=== PATIENT | male | born 1970 | race Caucasian/White ===

== ENCOUNTER 2017-03-16 02:03 | Emergency (ER) | payer SELFPAY ==
[~2017-03-16] VITALS: Ht 175.3 cm; Wt 84.0 kg
[~2017-03-16 02:03] MED LIST: DEXI30CA PO; LORA0.5T PO
[2017-03-16 02:09] VITALS: BP 123/77; PULSE 76; RESP 14; TEMP 98.6; O2SAT 100
[2017-03-16 02:15] VITALS: O2SAT 99
--- NOTE | 2017-03-16 02:38 | RADRPT ---
EXAM DATE/TIME: 03/16/2017 02:16 [facility] COMPARISON: No previous studies available for comparison. INDICATIONS : Short of breath. Chest pain. MEDICAL HISTORY : None. SURGICAL HISTORY : None. ENCOUNTER: Initial ACUITY: 1 day PAIN SCORE: 8/10 LOCATION: Bilateral chest FINDINGS: Portable AP view of the chest demonstrates a normal-sized cardiac silhouette. No effusion, consolidat ion, or pneumothorax is visualized. The bones and soft tissues demonstrate no acute abnormality. CONCLUSION: No acute cardiopulmonary abnormality is identified. Giorgio Navarro MD on March 16, 2017 at 2:36 Board Certified Radiologist. This report was verified electronically.
[2017-03-16 02:42] LABS: BASOPHIL # 0.1 TH/MM3 (0-0.2); BASOPHIL % 0.9 % (0.0-2.0); EOSINOPHIL # 0.4 TH/MM3 (0-0.4); EOSINOPHIL % 4.7 % (0.0-4.0); HEMOGLOBIN 14.6 GM/DL (13.0-17.0); LYMPH % 39.8 % (9.0-44.0); LYMPHOCYTE # 3.5 TH/MM3 (1.0-4.8); MEAN CELL VOLUME 88.3 FL (80.0-100.0); MEAN CORPUSCULAR HEMOGLOBIN 31.4 PG (27.0-34.0); MEAN CORPUSCULAR HGB CONC 35.5 % (32.0-36.0); MONOCYTE # 0.7 TH/MM3 (0-0.9); NEUT % 46.6 % (16.0-70.0); PLATELET COUNT 188 TH/MM3 (150-450); RED BLOOD COUNT 4.64 MIL/MM3 (4.50-5.90); WHITE BLOOD COUNT 8.7 TH/MM3 (4.0-11.0)
[2017-03-16 02:45] LABS: ALBUMIN 3.6 GM/DL (3.4-5.0); ALT (GPT) 18 U/L (12-78); AST (GOT) 13 U/L (15-37); BICARBONATE 25.9 MEQ/L (21.0-32.0); BLOOD UREA NITROGEN 12 MG/DL (7-18); CALCIUM 8.2 MG/DL (8.5-10.1); CHLORIDE 108 MEQ/L (98-107); CREATININE 0.89 MG/DL (0.60-1.30); GLOMERULAR FILTRATION RATE 92 ML/MIN (>89); GLUCOSE,RANDOM 101 MG/DL (74-106); SODIUM (NA) 141 MEQ/L (136-145)
[2017-03-16 02:46] LABS: TOTAL BILIRUBIN ADULT 0.2 MG/DL (0.2-1.0)
[2017-03-16 02:55] LABS: ALKALINE PHOSPHATASE 75 U/L (45-117); TROPONIN I LESS THAN 0.02 NG/ML (0.02-0.05)
--- NOTE | 2017-03-16 03:43 | PD ---
HPI Chief Complaint: Cardiac Complaint Time Seen by Provider: 02:30 Travel History International Travel<30 days: No Contact w/Intl Traveler<30days: No Traveled to known affect area: No History of Present Illness HPI The patient is a 46 year old male who presents to the [facility] emergency department with a history of palpitations that awoke him from sound sleep at approximately 1 AM. He reports that he had shortness of breath associated with this. He reports that it lasted between 20 and 25 minutes. He denies having any nightmares or dreams that he was aware of prior to waking up. He denies having any chest pressure or chest pain. He reports that he has had similar symptoms in the past and was diagnosed with anxiety. He does report having increased problems with stress and worry. He denies having any suicidal ideations. 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 He denies having any chest pressure or chest pain with activity. On review of systems otherwise, the patient denies having any recent fevers, cough , congestion, neck pain, abdominal pain, vomiting, diarrhea, urinary symptoms, or neurologic symptoms. He denies having any recent weight loss or weight gain. He denies having any lower extremity edema, calf pain, or erythema. [facility] Past Medical History Narrative Medical The patient's past medical history is significant for acid reflux. Anxiety: Yes GERD: Yes Tetanus Vaccination: < 5 Years Influenza Vaccination: No Past Surgical History Surgical History: No Previous Surgery Social History Alcohol Use: No Tobacco Use: Yes (1/2PPD) Substance Use: No Allergies-Medications (Allergen,Severity, Reaction): Coded Allergies: Penicillins (Verified Allergy, Severe, Nausea/Vomiting, 03/16/17) aspirin (Verified Allergy, Severe, Nausea/Vomiting, 03/16/17) Narrative Medication Omeprazole Review of Systems Except as stated in HPI: all other systems reviewed are Neg General / Constitutional: No: Fever Eyes: No: Visual changes HENT: No: Headaches Cardiovascular: Positive: Palpitations, Tachycardia, No: Chest Pain or Discomfort, Dyspnea on exertion Respiratory: Positive: Shortness of Breath Gastrointestinal: No: Nausea, Vomiting, Diarrhea, Abdominal Pain, Loss of Appetite Genitourinary: No: Dysuria Musculoskeletal: No: Pain Skin: No Rash Neurologic: No: Weakness, Focal Abnormalities, Change in Mentation, Slurred Speech, Sensory Disturbance Psychiatric: No: Depression Endocrine: No: Polydipsia Hematologic/Lymphatic: No: Easy Bruising Physical Exam Narrative General: The patient is well-developed well-nourished male in no acute distress. Head and Neck exam: Head is normocephalic atraumatic. Eyes: EOMI, pupils are equal round and reactive to light. Nose: Midline septum with pink mucous membranes Mouth: Dentition unremarkable. Moist mucus membranes. Posterior oropharynx is not erythematous. No tonsillar hypertrophy. Uvula midline. Airway patent. Neck: No palpable lymphadenopathy. No nuchal rigidity. No thyromegaly. Cardiovascular: Regular rate and rhythm without murmurs, gallops, or rubs. No pulse deficits in the extremities on simultaneous auscultation and palpation of his radial artery. Lungs: Clear to auscultation bilaterally. No wheezes, rhonchi, or rales. Abdomen: Soft, without tenderness to palpation in all 4 quadrants of the abdomen. No guarding, rebound, or rigidity. Normal bowel sounds are audible. No tenderness on palpation of McBurney's point. Extremities: No clubbing, cyanosis, or edema. 2+ pulses in all 4 extremities. No calf tenderness on palpation. Back: No spinous process tenderness to palpation. No costovertebral angle tenderness to palpation. Neurologic Exam: Grossly nonfocal. Skin Exam: No rash noted. Intact skin that is warm and dry. Data Data Last Documented VS Vital Signs Date Time Temp Pulse Resp B/P (MAP) Pulse Ox O2 Delivery O2 Flow Rate FiO2 03/16/17 02:15 99 03/16/17 02:15 Nasal Cannula 03/16/17 02:09 98.6 76 14 123/77 (92) Orders Orders Electrocardiogram (03/16/17 02:11) Complete Blood Count With Diff (03/16/17 02:11) Ckmb (Isoenzyme) Profile (03/16/17 02:11) Troponin I (03/16/17 02:11) Chest, Single Ap (03/16/17 02:11) Iv Access Insert/Monitor (03/16/17 02:11) Ecg Monitoring (03/16/17 02:11) Oxygen Administration (03/16/17 02:11) Oximetry (03/16/17 02:11) Comprehensive Metabolic Panel (03/16/17 02:11) Thyroid Stimulating Hormone (03/16/17 02:15) Labs Laboratory Tests Test 03/16/17 02:15 White Blood Count 8.7 TH/MM3 Red Blood Count 4.64 MIL/MM3 Hemoglobin 14.6 GM/DL Hematocrit 41.0 % Mean Corpuscular Volume 88.3 FL Mean Corpuscular Hemoglobin 31.4 PG Mean Corpuscular Hemoglobin Concent 35.5 % Red Cell Distribution Width 13.0 % Platelet Count 188 TH/MM3 Mean Platelet Volume 9.0 FL Neutrophils (%) (Auto) 46.6 % Lymphocytes (%) (Auto) 39.8 % Monocytes (%) (Auto) 8.0 % Eosinophils (%) (Auto) 4.7 % Basophils (%) (Auto) 0.9 % Neutrophils # (Auto) 4.0 TH/MM3 Lymphocytes # (Auto) 3.5 TH/MM3 Monocytes # (Auto) 0.7 TH/MM3 Eosinophils # (Auto) 0.4 TH/MM3 Basophils # (Auto) 0.1 TH/MM3 CBC Comment DIFF FINAL Differential Comment Blood Urea Nitrogen 12 MG/DL Creatinine 0.89 MG/DL Random Glucose 101 MG/DL Total Protein 7.0 GM/DL Albumin 3.6 GM/DL Calcium Level 8.2 MG/DL Alkaline Phosphatase 75 U/L Aspartate Amino Transf (AST/SGOT) 13 U/L Alanine Aminotransferase (ALT/SGPT) 18 U/L Total Bilirubin 0.2 MG/DL Sodium Level 141 MEQ/L Potassium Level 3.8 MEQ/L Chloride Level 108 MEQ/L Carbon Dioxide Level 25.9 MEQ/L Anion Gap 7 MEQ/L Estimat Glomerular Filtration Rate 92 ML/MIN Total Creatine Kinase 98 U/L Troponin I LESS THAN 0.02 NG/ML Thyroid Stimulating Hormone 3rd Gen 3.030 uIU/ML MDM Medical Decision Making Medical Screen Exam Complete: Yes Emergency Medical Condition: Yes Medical Record Reviewed: Yes Interpretation(s) Last Impressions Chest X-Ray 03/16/17210 Signed Impressions: Service Date/Time: Thursday, March 16, 2017 02:16 - CONCLUSION: No acute cardiopulmonary abnormality is identified. Giorgio Navarro MD Differential Diagnosis SDT, versus paroxysmal atrial fibrillation, versus premature atrial contraction , versus sinus tachycardia, versus anxiety, versus endocrine disorder Narrative Course During the course of the patients emergency department visit, the patients history, examination, and differential diagnosis were reviewed with the patient. The patient was placed on a office support specialist with oximetry and frequent blood pressure monitoring. The patient had IV access obtained and blood work sent for analysis. The patient had an EKG done on arrival. The patient's EKG shows a sinus rhythm heart rate of 72, QRS duration is 86 ms, QTC 385 ms. T waves are inverted in V1, no acute ST segment elevation. The patients laboratory studies were reviewed and remarkable for a CBC that is unremarkable, CMP is remarkable for chloride of 108, calcium 8.2, AST 13, cardiac enzymes within normal limits, TSH 3.03 Radiology studies were reviewed and remarkable for a chest x-ray that shows no acute cardiopulmonary disease. The patient has remained asymptomatic during his emergency department observation. The patient denies having a primary care physician. He is given the name of the [facility] for follow-up. I instructed him that the next step in his evaluation if he has a recurrence of palpitations would be to do a 24-hour Holter monitor. The patient is resting comfortably and feels better, is alert and in no distress. The patients results and examination findings were discussed with the patient. The repeat examination is unremarkable and benign. The history, exam, diagnostic testing, and current condition do not suggest any significant pathology to warrant further testing, continued ED treatment, admission, or surgical evaluation at this point. The vital signs have been stable. The patient does not have uncontrollable pain, intractable vomiting, or other significant symptoms. The patient's condition is stable and appropriate for discharge. The patient will pursue further outpatient evaluation with a primary care physician or other designated or consulting physician as indicated in the discharge instructions. The patient expressed understanding and was agreeable with this plan. Diagnosis Primary Impression: Palpitations Referrals: [facility] 1 week Patient Instructions: General Instructions, Heart Palpitations (ED) Med/Other Pt SpecificInfo: No Change to Meds Disposition: 01 DISCHARGE HOME Condition: Stable Esther Underwood MD Mar 16, 2017 03:43
--- NOTE | 2017-03-16 11:02 | EKG ---
Date Performed: 03/16/2017 Time Performed: 02:08:37 PTAGE: 46 years EKG: Sinus rhythm POSSIBLE RIGHT VENTRICULAR CONDUCTION DELAY BORDERLINE ECG NO PREVIOUS TRACING DOCTOR: Ron Javed Interpretating Date/Time 03/16/2017 10:58:05
== END 2017-03-16 04:48 | disposition home or self-care (01) ==
LOC: EDBD → MERGE 02:03 → NEPE 02:03
DX: R00.2 Palpitations (principal); R94.31 Abnormal electrocardiogram [ECG] [EKG]; F17.210 Nicotine dependence, cigarettes, uncomplicated
CPT/HCPCS: 71045; 80053; 82550; 84443; 84484; 85025; 93005; 99285

== ENCOUNTER 2017-04-08 20:39 | Emergency (ER) | payer OTHER ==
[~2017-04-08] VITALS: Ht 177.8 cm; Wt 90.0 kg
[2017-04-08 21:15] VITALS: RESP 16; O2SAT 98
[2017-04-08] MEDS ORDERED: PROCHLORPERAZINE INJ 10 MG/2 ML VIAL IV PUSH ONE (21:15)
[2017-04-08] MEDS ORDERED: KETOROLAC TROMETHAMINE 30 MG/ML (IVP) VIAL IV PUSH ONE (21:15)
[2017-04-08] MEDS ORDERED: SODIUM CHLOR 0.9% 1000 ML INJ 1,000 ML IV ONE (21:15)
[2017-04-08] MEDS ORDERED: SODIUM CHLORIDE 0.9% FLUSH 10 ML FLUSH IVF PRN (21:15)
--- NOTE | 2017-04-08 21:16 | PD ---
HPI Chief Complaint: Headache Time Seen by Provider: 21:08 Travel History International Travel<30 days: No Contact w/Intl Traveler<30days: No Traveled to known affect area: No History of Present Illness HPI 46-year-old male here for evaluation of headaches. The patient reports that for the last 3 weeks he has had about 3-4 headaches per week. Headaches are described as pressure, currently he has 8 out of 10 pain, diffuse pressure, photophobia, nausea, and vomiting. He denies fevers or chills. Onset was gradual. No paresthesias or motor deficits. States that while vomiting today he noticed some chest pressure/burning which has since resolved. Emesis consists of food, then becomes clear. He smokes cigarettes, but denies alcohol or drug use. PFSH Past Medical History Anxiety: Yes Diminished Hearing: No Gastrointestinal Disorders: Yes (GASTRITIS) GERD: Yes Social History Alcohol Use: No Tobacco Use: Yes (1/2PPD) Substance Use: No Allergies-Medications (Allergen,Severity, Reaction): Coded Allergies: Penicillins (Verified Allergy, Severe, Nausea/Vomiting, 04/08/17) metoclopramide (Unverified Allergy, Severe, 04/08/17) "TRIGGERS MY ANXIETY" aspirin (Unverified Allergy, Unknown, 04/08/17) penicillin G (Unverified Allergy, Unknown, 04/08/17) Reported Meds & Prescriptions Reported Meds & Active Scripts Active Reported Lorazepam 0.5 Mg Tab 0.5 Mg PO Q8H PRN Review of Systems Except as stated in HPI: all other systems reviewed are Neg Physical Exam Narrative GENERAL: Well-developed, well-nourished, comfortable, no apparent distress. SKIN: Focused skin assessment warm/dry. HEAD: Atraumatic. Normocephalic. EYES: Pupils equal, round, 3 mm, reactive to light. EOMI. No scleral icterus. No injection or drainage. ENT: No nasal bleeding or discharge. Mucous membranes pink and moist. NECK: Trachea midline. No JVD. CARDIOVASCULAR: Regular rate and rhythm. RESPIRATORY: No accessory muscle use. Clear to auscultation. Breath sounds equal bilaterally. GASTROINTESTINAL: Abdomen soft, non-tender, nondistended. MUSCULOSKELETAL: No obvious deformities. No clubbing. No cyanosis. No edema. NEUROLOGICAL: Awake and alert. No obvious cranial nerve deficits. Motor grossly within normal limits. Normal speech. PSYCHIATRIC: Appropriate mood and affect; insight and judgment normal. Data Data Last Documented VS Vital Signs Date Time Temp Pulse Resp B/P (MAP) Pulse Ox O2 Delivery O2 Flow Rate FiO2 04/08/17:18 98.0 88 16 118/66 (83) 100 04/08/17 21:15 Room Air Orders Orders Electrocardiogram (04/08/17 21:12) Ckmb (Isoenzyme) Profile (04/08/17 21:12) Complete Blood Count With Diff (04/08/17 21:12) Comprehensive Metabolic Panel (04/08/17 21:12) Magnesium (Mg) (04/08/17 21:12) Prothrombin Time / Inr (Pt) (04/08/17 21:12) Act Partial Throm Time (Ptt) (04/08/17 21:12) Troponin I (04/08/17 21:12) Lipase (04/08/17 21:12) Chest, Single Ap (04/08/17 21:12) Ecg Monitoring (04/08/17 21:12) Iv Access Insert/Monitor (04/08/17 21:12) Oximetry (04/08/17 21:12) Sodium Chloride 0.9% Flush (Ns Flush) (04/08/17 21:15) Ct Brain W/O Iv Contrast(Rout) (04/08/17 ) Sodium Chlor 0.9% 1000 Ml Inj (Ns 1000 M (04/08/17 21:15) Prochlorperazine Inj (Compazine Inj) (04/08/17 21:15) Ketorolac Inj (Toradol Inj) (04/08/17 21:15) CKMB (04/08/17 21:35) CKMB% (04/08/17 21:35) Diphenhydramine Inj (Benadryl Inj) (04/08/17 22:30) Levofloxacin (Levaquin) (04/08/17 22:30) Labs Laboratory Tests Test 04/08/17 21:35 White Blood Count 8.4 TH/MM3 Red Blood Count 4.73 MIL/MM3 Hemoglobin 14.7 GM/DL Hematocrit 41.4 % Mean Corpuscular Volume 87.5 FL Mean Corpuscular Hemoglobin 31.0 PG Mean Corpuscular Hemoglobin Concent 35.4 % Red Cell Distribution Width 13.2 % Platelet Count 178 TH/MM3 Mean Platelet Volume 8.4 FL Neutrophils (%) (Auto) 62.5 % Lymphocytes (%) (Auto) 26.5 % Monocytes (%) (Auto) 7.2 % Eosinophils (%) (Auto) 3.0 % Basophils (%) (Auto) 0.8 % Neutrophils # (Auto) 5.3 TH/MM3 Lymphocytes # (Auto) 2.2 TH/MM3 Monocytes # (Auto) 0.6 TH/MM3 Eosinophils # (Auto) 0.3 TH/MM3 Basophils # (Auto) 0.1 TH/MM3 CBC Comment DIFF FINAL Differential Comment Blood Urea Nitrogen 11 MG/DL Creatinine 0.86 MG/DL Random Glucose 109 MG/DL Total Protein 7.0 GM/DL Albumin 3.7 GM/DL Calcium Level 8.5 MG/DL Magnesium Level 2.0 MG/DL Alkaline Phosphatase 79 U/L Aspartate Amino Transf (AST/SGOT) 13 U/L Alanine Aminotransferase (ALT/SGPT) 22 U/L Total Bilirubin 0.4 MG/DL Sodium Level 138 MEQ/L Potassium Level 3.6 MEQ/L Chloride Level 104 MEQ/L Carbon Dioxide Level 26.0 MEQ/L Anion Gap 8 MEQ/L Estimat Glomerular Filtration Rate 96 ML/MIN Total Creatine Kinase 105 U/L Creatine Kinase MB LESS THAN 0.5 NG/ML Troponin I LESS THAN 0.02 NG/ML Lipase 68 U/L MDM Medical Decision Making Medical Screen Exam Complete: Yes Emergency Medical Condition: Yes Medical Record Reviewed: Yes Interpretation(s) EKG: Sinus, rate 70, normal axis, normal intervals, no acute ischemic abnormality. Differential Diagnosis Migraine headache, tension headache, cluster headache, intracranial abnormality , SAH/meningitis/encephalitis less likely, ACS less likely Narrative Course Initial vital signs show heart rate 88, blood pressure 118/66, pulse ox 100% on room air, oral temp of 98F. CBC is unremarkable. CMP is unremarkable. Lipase is 68. Cardiac enzymes are negative. CT head: No acute intracranial abnormality. Mucosal thickening involving the ethmoid air cells bilaterally, bilateral frontal sinuses, left maxillary sinus, and right sphenoid sinus. Chest x-ray: No acute disease The patient was given Compazine and Toradol. After receiving Compazine he felt anxious/sugary. He was written for Benadryl. Patient was also given a dose of Levaquin as he is allergic to penicillins for his sinusitis. On reassessment he is resting comfortably in his headache feels improved. He is overall well- appearing. No nuchal rigidity on exam. I do not believe the patient has SAH/ meningitis/encephalitis. At this point I believe he is stable for discharge home with outpatient follow-up with a primary care physician this week. He was advised on when to return to the emergency department. He verbalizes understanding and agreement with plan. Diagnosis Primary Impression: Headache Qualified Codes: R51 - Headache Additional Impression: Sinusitis Qualified Codes: J32.9 - Chronic sinusitis, unspecified Referrals: Primary Care Physician 3 days Additional Instructions: Follow-up with a primary care physician this week. Return to the emergency department for worsening symptoms or any other concerns. Scripts Levofloxacin (Levaquin) 750 Mg Tablet 750 MG PO DAILY for Infection for 5 Days, #5 TAB 0 Refills Prov: Scooter Barr MD 04/08/17 Disposition: 01 DISCHARGE HOME Condition: Stable Scooter Barr MD Apr 08, 2017 21:16
[2017-04-08 21:18] VITALS: BP 118/66; PULSE 88; RESP 16; TEMP 98; O2SAT 100
[2017-04-08 21:48] LABS: AUTOMATED NEUTROPHIL # 5.3 TH/MM3 (1.8-7.7); BASOPHIL # 0.1 TH/MM3 (0-0.2); BASOPHIL % 0.8 % (0.0-2.0); EOSINOPHIL # 0.3 TH/MM3 (0-0.4); HEMATOCRIT 41.4 % (39.0-51.0); HEMOGLOBIN 14.7 GM/DL (13.0-17.0); LYMPH % 26.5 % (9.0-44.0); LYMPHOCYTE # 2.2 TH/MM3 (1.0-4.8); MEAN CELL VOLUME 87.5 FL (80.0-100.0); MEAN CORPUSCULAR HGB CONC 35.4 % (32.0-36.0); MEAN PLATELET VOLUME 8.4 FL (7.0-11.0); MONO % 7.2 % (0.0-8.0); MONOCYTE # 0.6 TH/MM3 (0-0.9); NEUT % 62.5 % (16.0-70.0); PLATELET COUNT 178 TH/MM3 (150-450); RED BLOOD COUNT 4.73 MIL/MM3 (4.50-5.90); RED CELL DISTRIBUTION WIDTH 13.2 % (11.6-17.2); WHITE BLOOD COUNT 8.4 TH/MM3 (4.0-11.0)
--- NOTE | 2017-04-08 21:54 | RADRPT ---
EXAM DATE/TIME: 04/08/2017 21:25 [facility] COMPARISON: No previous studies available for comparison. INDICATIONS : Cephalgia. RADIATION DOSE: 47.11 CTDIvol (mGy) MEDICAL HISTORY : None SURGICAL HISTORY : None. ENCOUNTER: Initial ACUITY: 1 day PAIN SCALE: 5/10 LOCATION: cranial TECHNIQUE: Multiple contiguous axial images were obtained of the head. Using automated exposure control and adj ustment of the mA and/or kV according to patient size, radiation dose was kept as low as reasonably a chievable to obtain optimal diagnostic quality images. DICOM format image data is available electro nically for review and comparison. FINDINGS: CEREBRUM: The ventricles are normal for age. No evidence of midline shift, mass lesion, hemorrhage or acute in farction. No extra-axial fluid collections are seen. POSTERIOR FOSSA: The cerebellum and brainstem are intact. The 4th ventricle is midline. The cerebellopontine angle i s unremarkable. EXTRACRANIAL: The visualized portion of the orbits is intact. Mucosal thickening is noted involving the ethmoid air cells bilaterally, frontal sinuses, left maxillary sinus and right sphenoid sinus. SKULL: The calvaria is intact. No evidence of skull fracture. CONCLUSION: No acute intracranial abnormality. Mucosal thickening involving the ethmoid air cells bilaterally, bi lateral frontal sinuses, left maxillary sinus and right sphenoid sinus. Jason Muñoz MD on April 08, 2017 at 21:52 Board Certified Radiologist. This report was verified electronically.
--- NOTE | 2017-04-08 21:58 | RADRPT ---
EXAM DATE/TIME: 04/08/2017 21:19 [facility] COMPARISON: CHEST SINGLE AP, March 16, 2017, 2:16. INDICATIONS : Chest pain. MEDICAL HISTORY : None. SURGICAL HISTORY : None. ENCOUNTER: Initial ACUITY: 1 day PAIN SCORE: 9/10 LOCATION: Bilateral chest FINDINGS: A single view of the chest demonstrates the lungs to be symmetrically aerated without evidence of mas s, infiltrate or effusion. The cardiomediastinal contours are unremarkable. Osseous structures are intact. CONCLUSION: No acute disease. Jason Muñoz MD on April 08, 2017 at 21:57 Board Certified Radiologist. This report was verified electronically.
[2017-04-08 22:05] LABS: ALBUMIN 3.7 GM/DL (3.4-5.0); ALT (GPT) 22 U/L (12-78); AST (GOT) 13 U/L (15-37); BLOOD UREA NITROGEN 11 MG/DL (7-18); CALCIUM 8.5 MG/DL (8.5-10.1); CHLORIDE 104 MEQ/L (98-107); CREATININE 0.86 MG/DL (0.60-1.30); GLOMERULAR FILTRATION RATE 96 ML/MIN (>89); GLUCOSE,RANDOM 109 MG/DL (74-106); SODIUM (NA) 138 MEQ/L (136-145)
[2017-04-08 22:10] LABS: ALKALINE PHOSPHATASE 79 U/L (45-117); TOTAL BILIRUBIN ADULT 0.4 MG/DL (0.2-1.0); TROPONIN I LESS THAN 0.02 NG/ML (0.02-0.05)
[2017-04-08] MEDS ORDERED: LEVOFLOXACIN 750 MG TAB PO ONE (22:30)
[2017-04-08] MEDS ORDERED: diphenhydrAMINE HCL 50 MG/ML VIAL IV PUSH ONE (22:30)
[2017-04-08] MEDS ORDERED: LEVA750T9 PO (22:54)
--- NOTE | 2017-04-09 09:01 | EKG ---
Date Performed: 04/08/2017 Time Performed: 21:42:13 PTAGE: 46 years EKG: Sinus rhythm NORMAL ECG PREVIOUS TRACING : 12/31/2015 19.00 DOCTOR: Ron Javed Interpretating Date/Time 04/09/2017 09:00:15
== END 2017-04-08 23:49 | disposition home or self-care (01) ==
LOC: NEPE 20:39
DX: R51 Headache (principal); J32.9 Chronic sinusitis, unspecified; F17.210 Nicotine dependence, cigarettes, uncomplicated; Z88.8 Allergy status to other drugs, medicaments and biological substances; Z88.0 Allergy status to penicillin
CPT/HCPCS: 70450; 71045; 80053; 82550; 82552; 83690; 83735; 84484; 85025; 93005; 96361; 96374; 96375; 99285; J0780; J1200; J1885; J7030; 85610; 85730

== ENCOUNTER 2017-04-20 11:28 | Emergency (ER) | payer SELFPAY ==
[~2017-04-20] VITALS: Ht 175.3 cm; Wt 76.0 kg
[~2017-04-20 11:28] MED LIST changes: -DEXI30CA PO; +LEVA750T9 PO
[2017-04-20 11:39] VITALS: BP 114/77; PULSE 96; RESP 17; TEMP 97.7; O2SAT 99
--- NOTE | 2017-04-20 12:23 | RADRPT ---
EXAM DATE/TIME: 04/20/2017 12:11 [facility] COMPARISON: No previous studies available for comparison. INDICATIONS : Chest pain for 2 days. MEDICAL HISTORY : None. SURGICAL HISTORY : None. ENCOUNTER: Initial ACUITY: 2 days PAIN SCORE: 3/10 LOCATION: Bilateral chest FINDINGS: PA and lateral views of the chest demonstrate the lungs to be symmetrically aerated without evidence of mass, infiltrate or effusion. The cardiomediastinal contours are unremarkable. Osseous structure s are intact. CONCLUSION: No acute cardiopulmonary disease. Jonah Briones MD on April 20, 2017 at 12:22 Board Certified Radiologist. This report was verified electronically.
[2017-04-20 12:27] LABS: AUTOMATED NEUTROPHIL # 4.5 TH/MM3 (1.8-7.7); BASOPHIL # 0.1 TH/MM3 (0-0.2); BASOPHIL % 1.2 % (0.0-2.0); EOSINOPHIL # 0.3 TH/MM3 (0-0.4); EOSINOPHIL % 4.2 % (0.0-4.0); HEMATOCRIT 46.2 % (39.0-51.0); LYMPH % 26.2 % (9.0-44.0); MEAN CORPUSCULAR HEMOGLOBIN 30.9 PG (27.0-34.0); MEAN CORPUSCULAR HGB CONC 34.7 % (32.0-36.0); MEAN PLATELET VOLUME 8.8 FL (7.0-11.0); MONO % 7.5 % (0.0-8.0); MONOCYTE # 0.6 TH/MM3 (0-0.9); NEUT % 60.9 % (16.0-70.0); PLATELET COUNT 196 TH/MM3 (150-450); RED BLOOD COUNT 5.19 MIL/MM3 (4.50-5.90); RED CELL DISTRIBUTION WIDTH 13.4 % (11.6-17.2); WHITE BLOOD COUNT 7.5 TH/MM3 (4.0-11.0)
[2017-04-20 12:58] LABS: BICARBONATE 25.4 MEQ/L (21.0-32.0); BLOOD UREA NITROGEN 13 MG/DL (7-18); CHLORIDE 103 MEQ/L (98-107); CREATININE 0.87 MG/DL (0.60-1.30); GLOMERULAR FILTRATION RATE 95 ML/MIN (>89); GLUCOSE,RANDOM 95 MG/DL (74-106); SODIUM (NA) 136 MEQ/L (136-145)
[2017-04-20 13:02] LABS: TROPONIN I LESS THAN 0.02 NG/ML (0.02-0.05)
[2017-04-20 14:44] VITALS: BP 117/74; PULSE 89; RESP 17; O2SAT 99
--- NOTE | 2017-04-20 15:09 | PD ---
HPI Chief Complaint: Chest Pain Time Seen by Provider: 14:35 Travel History International Travel<30 days: No Contact w/Intl Traveler<30days: No Traveled to known affect area: No History of Present Illness HPI Is a 46-year-old man presents emerged department of anxiety and chest pain. He states his been under increased stress recently. Is been treated for anxiety for the past couple years but have been doing well up until he moved to [facility]. He has been seen by cardiology in the past because of chest pains were found to be related to anxiety. No other history of heart disease. Symptoms worse over the past several days. History Past Medical History Narrative Medical Anxiety Reflux Tetanus Vaccination: > 5 Years Influenza Vaccination: Yes Social History Alcohol Use: No Tobacco Use: Yes (1/2PPD) Allergies-Medications (Allergen,Severity, Reaction): Coded Allergies: Penicillins (Verified Allergy, Severe, Nausea/Vomiting, 04/20/17) metoclopramide (Unverified Allergy, Severe, 04/20/17) "TRIGGERS MY ANXIETY" aspirin (Unverified Allergy, Unknown, 04/20/17) penicillin G (Unverified Allergy, Unknown, 04/20/17) Reported Meds & Prescriptions Reported Meds & Active Scripts Active Reported Lorazepam 0.5 Mg Tab 0.5 Mg PO Q8H PRN Review of Systems Except as stated in HPI: all other systems reviewed are Neg Physical Exam Narrative GENERAL: [Well-appearing 46-year-old man, no acute distress. SKIN: Focused skin assessment warm/dry. HEAD: Atraumatic. Normocephalic. EYES: Pupils equal and round. No scleral icterus. No injection or drainage. ENT: No nasal bleeding or discharge. Mucous membranes pink and moist. NECK: Trachea midline. No JVD. CARDIOVASCULAR: Regular rate and rhythm. No murmur appreciated. RESPIRATORY: No accessory muscle use. Clear to auscultation. Breath sounds equal bilaterally. GASTROINTESTINAL: Abdomen soft, non-tender, nondistended. Hepatic and splenic margins not palpable. MUSCULOSKELETAL: No obvious deformities. No clubbing. No cyanosis. No edema. NEUROLOGICAL: Awake and alert. No obvious cranial nerve deficits. Motor grossly within normal limits. Normal speech. PSYCHIATRIC: Appropriate mood and affect; insight and judgment normal. Data Data Last Documented VS Vital Signs Date Time Temp Pulse Resp B/P (MAP) Pulse Ox O2 Delivery O2 Flow Rate FiO2 04/20/17 14:44 89 17 117/74 (88) 99 Room Air 04/20/17 11:39 97.7 Orders Orders Electrocardiogram (04/20/17 11:41) Complete Blood Count With Diff (04/20/17 11:41) Basic Metabolic Panel (Bmp) (04/20/17 11:41) Ckmb (Isoenzyme) Profile (04/20/17 11:41) Troponin I (04/20/17 11:41) Chest, Pa & Lat (04/20/17 ) Ed Discharge Order (04/20/17 15:09) Labs Laboratory Tests Test 04/20/17 12:00 White Blood Count 7.5 TH/MM3 Red Blood Count 5.19 MIL/MM3 Hemoglobin 16.0 GM/DL Hematocrit 46.2 % Mean Corpuscular Volume 89.0 FL Mean Corpuscular Hemoglobin 30.9 PG Mean Corpuscular Hemoglobin Concent 34.7 % Red Cell Distribution Width 13.4 % Platelet Count 196 TH/MM3 Mean Platelet Volume 8.8 FL Neutrophils (%) (Auto) 60.9 % Lymphocytes (%) (Auto) 26.2 % Monocytes (%) (Auto) 7.5 % Eosinophils (%) (Auto) 4.2 % Basophils (%) (Auto) 1.2 % Neutrophils # (Auto) 4.5 TH/MM3 Lymphocytes # (Auto) 2.0 TH/MM3 Monocytes # (Auto) 0.6 TH/MM3 Eosinophils # (Auto) 0.3 TH/MM3 Basophils # (Auto) 0.1 TH/MM3 CBC Comment DIFF FINAL Differential Comment Blood Urea Nitrogen 13 MG/DL Creatinine 0.87 MG/DL Random Glucose 95 MG/DL Calcium Level 9.0 MG/DL Sodium Level 136 MEQ/L Potassium Level 4.4 MEQ/L Chloride Level 103 MEQ/L Carbon Dioxide Level 25.4 MEQ/L Anion Gap 8 MEQ/L Estimat Glomerular Filtration Rate 95 ML/MIN Total Creatine Kinase 91 U/L Troponin I LESS THAN 0.02 NG/ML [facility] Medical Decision Making Medical Screen Exam Complete: Yes Emergency Medical Condition: Yes Interpretation(s) LABS: CBC is unremarkable. BMP is unremarkable Troponin is negative. Chest x-ray negative Reviewed EKG Differential Diagnosis Anxiety, stress, PA, pericarditis, PE, dissection, other Narrative Course Patient with chest pain related to anxiety related to increased social stressors since moving and his anxiety symptoms he has been on SSRI in the past. I recommended he see his primary doctor, consider going back on his SSRI , take his Ativan as prescribed, return to the emergency department for any new or worsening symptoms. Diagnosis Primary Impression: Anxiety Additional Impression: Chest pain Additional Instructions: Follow-up with your primary physician as discussed. Continue Ativan as prescribed for anxiety. Return to the emergency department for any new or worsening symptoms. Med/Other Pt SpecificInfo: No Change to Meds Disposition: 01 DISCHARGE HOME Condition: Stable Ron Blackmon MD Apr 20, 2017 15:09
--- NOTE | 2017-04-20 22:53 | EKG ---
Date Performed: 04/20/2017 Time Performed: 11:55:31 PTAGE: 46 years EKG: Sinus rhythm POSSIBLE RIGHT VENTRICULAR CONDUCTION DELAY BORDERLINE ECG PREVIOUS TRACING : 04/08/2017 21.42 DOCTOR: Mack Mackey Interpretating Date/Time 04/20/2017 22:51:07
== END 2017-04-20 15:27 | disposition home or self-care (01) ==
LOC: NEPD 11:28
DX: F41.9 Anxiety disorder, unspecified (principal); R07.9 Chest pain, unspecified; F17.210 Nicotine dependence, cigarettes, uncomplicated; R94.31 Abnormal electrocardiogram [ECG] [EKG]; Z88.0 Allergy status to penicillin; Z88.8 Allergy status to other drugs, medicaments and biological substances
CPT/HCPCS: 71046; 80048; 82550; 84484; 85025; 93005

== ENCOUNTER 2017-05-22 22:01 | Emergency (ER) | payer SELFPAY ==
[~2017-05-22] VITALS: Ht 175.3 cm; Wt 75.0 kg
[~2017-05-22 22:01] MED LIST changes: -LEVA750T9 PO
[2017-05-22 22:36] VITALS: BP 114/71; PULSE 71; RESP 16; TEMP 98.6; O2SAT 97
[2017-05-22 23:00] VITALS: BP 120/66; PULSE 64; RESP 17; O2SAT 98
[2017-05-22] MEDS ORDERED: SODIUM CHLORIDE 0.9% FLUSH 10 ML FLUSH IVF PRN (23:00)
[2017-05-22] MEDS ORDERED: LORazepam 2 MG/ML VIAL IV PUSH ONE (23:00)
[2017-05-22 23:29] LABS: AUTOMATED NEUTROPHIL # 3.2 TH/MM3 (1.8-7.7); BASOPHIL # 0.1 TH/MM3 (0-0.2); BASOPHIL % 1.1 % (0.0-2.0); EOSINOPHIL # 0.5 TH/MM3 (0-0.4); EOSINOPHIL % 7.3 % (0.0-4.0); HEMATOCRIT 41.1 % (39.0-51.0); HEMOGLOBIN 14.5 GM/DL (13.0-17.0); LYMPH % 33.3 % (9.0-44.0); LYMPHOCYTE # 2.2 TH/MM3 (1.0-4.8); MEAN CELL VOLUME 86.9 FL (80.0-100.0); MEAN CORPUSCULAR HEMOGLOBIN 30.6 PG (27.0-34.0); MEAN CORPUSCULAR HGB CONC 35.3 % (32.0-36.0); MEAN PLATELET VOLUME 8.9 FL (7.0-11.0); MONO % 10.5 % (0.0-8.0); MONOCYTE # 0.7 TH/MM3 (0-0.9); NEUT % 47.8 % (16.0-70.0); PLATELET COUNT 169 TH/MM3 (150-450); RED BLOOD COUNT 4.72 MIL/MM3 (4.50-5.90); RED CELL DISTRIBUTION WIDTH 12.8 % (11.6-17.2); WHITE BLOOD COUNT 6.6 TH/MM3 (4.0-11.0)
[2017-05-22 23:35] VITALS: BP 101/63; PULSE 71; RESP 15; O2SAT 98
--- NOTE | 2017-05-22 23:46 | PD ---
HPI . Panic attack Chief Complaint: Chest Pain Time Seen by Provider: 22:46 Travel History International Travel<30 days: No Contact w/Intl Traveler<30days: No Traveled to known affect area: No History of Present Illness HPI Patient presents to us by rescue with the chief complaint of panic attack. Part of his panic attack with chest pain. He was given nitroglycerin by EMS with no relief of his chest pain. The patient states that he has a history of panic attacks and that his symptoms were consistent with previous panic attacks. He states that he was "too worked up" to take his usual Ativan. He states that he ate a lot of sweets today and presumes that his panic attack was secondary to elevated blood sugar. He denies history of diabetes. He states that his symptoms have now completely resolved. PFSH Past Medical History Anxiety: Yes Diminished Hearing: No Gastrointestinal Disorders: Yes (GASTRITIS) GERD: Yes Past Surgical History Surgical History: No Previous Surgery Social History Alcohol Use: No Tobacco Use: Yes (1/2PPD) Substance Use: No Allergies-Medications (Allergen,Severity, Reaction): Coded Allergies: Penicillins (Verified Allergy, Severe, Nausea/Vomiting, 05/22/17) metoclopramide (Unverified Allergy, Severe, 05/22/17) "TRIGGERS MY ANXIETY" aspirin (Unverified Allergy, Unknown, 05/22/17) penicillin G (Unverified Allergy, Unknown, 05/22/17) Reported Meds & Prescriptions Reported Meds & Active Scripts Active Reported Lorazepam 0.5 Mg Tab 0.5 Mg PO Q8H PRN Review of Systems Except as stated in HPI: all other systems reviewed are Neg Physical Exam Narrative GENERAL: Healthy-appearing man who is in no distress at this time. SKIN: warm/dry. HEAD: Normocephalic. Atraumatic. EYES: Pupils equal and round. No scleral icterus. No injection or drainage. ENT: No nasal bleeding or discharge. Mucous membranes pink and moist. NECK: Trachea midline. Full range of motion without pain.. CARDIOVASCULAR: Regular rate and rhythm. Heart sounds normal. RESPIRATORY: No accessory muscle use. Clear to auscultation. Breath sounds equal bilaterally. MUSCULOSKELETAL: No obvious deformities. NEUROLOGICAL: Awake and alert. No obvious cranial nerve deficits. Motor grossly within normal limits. Normal speech. PSYCHIATRIC: Appropriate mood and affect; insight and judgment normal. Data Data Last Documented VS Vital Signs Date Time Temp Pulse Resp B/P (MAP) Pulse Ox O2 Delivery O2 Flow Rate FiO2 05/22/17 23:00 64 17 120/66 (84) 98 Room Air 05/22/17 22:36 98.6 Orders Orders Electrocardiogram (05/22/17 22:47) Basic Metabolic Panel (Bmp) (05/22/17 22:47) Complete Blood Count With Diff (05/22/17 22:47) Troponin I (05/22/17 22:47) Iv Access Insert/Monitor (05/22/17 22:47) Sodium Chloride 0.9% Flush (Ns Flush) (05/22/17 23:00) Lorazepam Inj (Ativan Inj) (05/22/17 23:00) Labs Laboratory Tests Test 05/22/17 23:10 White Blood Count 6.6 TH/MM3 Red Blood Count 4.72 MIL/MM3 Hemoglobin 14.5 GM/DL Hematocrit 41.1 % Mean Corpuscular Volume 86.9 FL Mean Corpuscular Hemoglobin 30.6 PG Mean Corpuscular Hemoglobin Concent 35.3 % Red Cell Distribution Width 12.8 % Platelet Count 169 TH/MM3 Mean Platelet Volume 8.9 FL Neutrophils (%) (Auto) 47.8 % Lymphocytes (%) (Auto) 33.3 % Monocytes (%) (Auto) 10.5 % Eosinophils (%) (Auto) 7.3 % Basophils (%) (Auto) 1.1 % Neutrophils # (Auto) 3.2 TH/MM3 Lymphocytes # (Auto) 2.2 TH/MM3 Monocytes # (Auto) 0.7 TH/MM3 Eosinophils # (Auto) 0.5 TH/MM3 Basophils # (Auto) 0.1 TH/MM3 CBC Comment DIFF FINAL Differential Comment Blood Urea Nitrogen 17 MG/DL Creatinine 0.77 MG/DL Random Glucose 106 MG/DL Calcium Level 8.3 MG/DL Sodium Level 143 MEQ/L Potassium Level 3.7 MEQ/L Chloride Level 112 MEQ/L Carbon Dioxide Level 25.9 MEQ/L Anion Gap 5 MEQ/L Estimat Glomerular Filtration Rate 109 ML/MIN Troponin I LESS THAN 0.02 NG/ML MDM Medical Decision Making Medical Screen Exam Complete: Yes Emergency Medical Condition: Yes Interpretation(s) EKG shows a normal sinus rhythm with no acute ischemic change. Differential Diagnosis Differential diagnosis of chest pain includes but is not limited to musculoskeletal pain, pulmonary embolism, acute coronary syndrome, pneumonia, pleurisy Narrative Course This patient presents via rescue status post a panic attack. He has been given a dose of Ativan here with complete resolution of his symptoms. CBC & BMP Diagram 05/22/17 23:10 Calcium Level 8.3 L Troponin less than 0.02. This patient is stable for discharge to home. Diagnosis Primary Impression: Precordial chest pain Additional Impression: Panic attack Patient Instructions: General Instructions, Panic Attack (ED) Disposition: 01 DISCHARGE HOME Condition: Stable Shavon Urena MD May 22, 2017 23:46
[2017-05-22 23:48] LABS: BICARBONATE 25.9 MEQ/L (21.0-32.0); BLOOD UREA NITROGEN 17 MG/DL (7-18); CALCIUM 8.3 MG/DL (8.5-10.1); CHLORIDE 112 MEQ/L (98-107); CREATININE 0.77 MG/DL (0.60-1.30); GLOMERULAR FILTRATION RATE 109 ML/MIN (>89); GLUCOSE,RANDOM 106 MG/DL (74-106); SODIUM (NA) 143 MEQ/L (136-145)
[2017-05-22 23:51] LABS: TROPONIN I LESS THAN 0.02 NG/ML (0.02-0.05)
[2017-05-23 00:08] VITALS: BP 120/74; PULSE 77; RESP 17; O2SAT 98
--- NOTE | 2017-05-23 10:29 | EKG ---
Date Performed: 05/22/2017 Time Performed: 22:30:09 PTAGE: 46 years EKG: Sinus rhythm NORMAL ECG Since the PREVIOUS TRACING , no significant change noted PREVIOUS TRACING 04/10/2017 11.5531 DOCTOR: Jose Vila Interpretating Date/Time 05/23/2017 10:28:04
== END 2017-05-23 00:45 | disposition home or self-care (01) ==
LOC: NEPE 22:01
DX: R07.89 Other chest pain (principal); F41.0 Panic disorder [episodic paroxysmal anxiety]; K21.9 Gastro-esophageal reflux disease without esophagitis; F17.200 Nicotine dependence, unspecified, uncomplicated; Z88.0 Allergy status to penicillin; Z88.8 Allergy status to other drugs, medicaments and biological substances; Z88.6 Allergy status to analgesic agent
CPT/HCPCS: 80048; 84484; 85025; 93005; 96374; 99284; J2060

== ENCOUNTER 2017-05-30 22:48 | Emergency (ER) | payer SELFPAY ==
[~2017-05-30] VITALS: Ht 175.3 cm; Wt 78.0 kg
[2017-05-30 22:57] VITALS: BP 135/75; PULSE 73; RESP 15; TEMP 98.6; O2SAT 97
--- NOTE | 2017-05-30 23:39 | PD ---
HPI Chief Complaint: Chest Pain Time Seen by Provider: 23:27 Travel History International Travel<30 days: No Contact w/Intl Traveler<30days: No Traveled to known affect area: No History of Present Illness HPI 26-year-old male complains of palpitation and elevated blood pressure. Patient denies his anxiety and frequent anxiety attack. Patient started to have anxiety attack this evening. Patient states that he started having palpitation shortness of breath elevated blood pressure. The symptoms were transient. Patient feels much better now. Patient took lorazepam prior to arrival. Patient denies any chest pain. Patient denies any headache. Patient denies abdominal pain. Patient denies other medical problem. Patient was seen in emergency room 2 weeks ago for chest pain. Workup was negative. PFSH Past Medical History Anxiety: Yes Diminished Hearing: No Gastrointestinal Disorders: Yes (GASTRITIS) GERD: Yes Past Surgical History Surgical History: No Previous Surgery Social History Alcohol Use: No Tobacco Use: Yes (1/2PPD) Substance Use: No Allergies-Medications (Allergen,Severity, Reaction): Coded Allergies: Penicillins (Verified Allergy, Severe, Nausea/Vomiting, 05/30/17) metoclopramide (Unverified Allergy, Severe, 05/30/17) "TRIGGERS MY ANXIETY" aspirin (Unverified Allergy, Unknown, 05/30/17) penicillin G (Unverified Allergy, Unknown, 05/30/17) Reported Meds & Prescriptions Reported Meds & Active Scripts Active Reported Lorazepam 0.5 Mg Tab 0.5 Mg PO Q8H PRN Review of Systems General / Constitutional: No: Fever Eyes: No: Visual changes HENT: No: Headaches Cardiovascular: Positive: Palpitations, No: Chest Pain or Discomfort Respiratory: Positive: Shortness of Breath Gastrointestinal: No: Abdominal Pain Genitourinary: No: Dysuria Musculoskeletal: No: Pain Skin: No Rash Neurologic: No: Weakness Psychiatric: No: Depression Endocrine: No: Polydipsia Hematologic/Lymphatic: No: Easy Bruising Physical Exam Narrative GENERAL: Well-nourished, well-developed patient. SKIN: Focused skin assessment warm/dry. HEAD: Normocephalic. EYES: No scleral icterus. No injection or drainage. NECK: Supple, trachea midline. No JVD or lymphadenopathy. CARDIOVASCULAR: Regular rate and rhythm without murmurs, gallops, or rubs. RESPIRATORY: Breath sounds equal bilaterally. No accessory muscle use. GASTROINTESTINAL: Abdomen soft, non-tender, nondistended. MUSCULOSKELETAL: No cyanosis, or edema. BACK: Nontender without obvious deformity. No CVA tenderness. Neurologic exam normal. Data Data Last Documented VS Vital Signs Date Time Temp Pulse Resp B/P (MAP) Pulse Ox O2 Delivery O2 Flow Rate FiO2 05/30/17 23:00 73 16 96 Room Air 05/30/17 22:57 98.6 135/75 (95) [facility] Medical Decision Making Medical Screen Exam Complete: Yes Emergency Medical Condition: Yes Medical Record Reviewed: Yes Interpretation(s) EKG shows sinus rhythm nonspecific ST-T wave change. Differential Diagnosis Differential diagnosis including anxiety attack, panic attack, arrhythmia. Narrative Course 46-year-old male with palpitation and elevated blood pressure. Patient's vital signs stable now. Patient is feeling better. No complaint now. Diagnosis Primary Impression: Anxiety attack Patient Instructions: General Instructions Additional Instructions: Continue Ativan as needed for anxiety. Follow-up with local physician. Med/Other Pt SpecificInfo: No Change to Meds Disposition: 01 DISCHARGE HOME Condition: Stable Lawson Meek MD May 30, 2017 23:39
== END 2017-05-31 00:31 | disposition home or self-care (01) ==
LOC: NEPC 22:48
DX: F41.8 Other specified anxiety disorders (principal); R03.0 Elevated blood-pressure reading, without diagnosis of hypertension; R06.02 Shortness of breath; K21.9 Gastro-esophageal reflux disease without esophagitis; F17.200 Nicotine dependence, unspecified, uncomplicated; Z87.19 Personal history of other diseases of the digestive system
CPT/HCPCS: 93005; 99283

== ENCOUNTER 2017-06-06 12:27 | Emergency (ER) | payer SELFPAY ==
[~2017-06-06] VITALS: Ht 175.3 cm; Wt 75.0 kg
[2017-06-06 13:02] VITALS: BP 122/80; PULSE 74; RESP 18; TEMP 98.2; O2SAT 99
--- NOTE | 2017-06-06 14:27 | RADRPT ---
EXAM DATE/TIME: 06/06/2017 13:23 [facility] COMPARISON: CHEST PA & LAT, April 20, 2017, 12:11. INDICATIONS : Chest pain and tightness for two weeks. MEDICAL HISTORY : None. SURGICAL HISTORY : None. ENCOUNTER: Initial ACUITY: 1 day PAIN SCORE: 6/10 LOCATION: Bilateral chest FINDINGS: PA and lateral views of the chest demonstrate the lungs to be symmetrically aerated without evidence of mass, infiltrate or effusion. The cardiomediastinal contours are unremarkable. Osseous structure s are intact. CONCLUSION: No acute cardiopulmonary disease. oJnah Briones MD on June 06, 2017 at 14:19 Board Certified Radiologist. This report was verified electronically.
[2017-06-06 14:42] LABS: AUTOMATED NEUTROPHIL # 4.2 TH/MM3 (1.8-7.7); BASOPHIL # 0.1 TH/MM3 (0-0.2); BASOPHIL % 1.2 % (0.0-2.0); EOSINOPHIL # 0.4 TH/MM3 (0-0.4); EOSINOPHIL % 4.8 % (0.0-4.0); HEMOGLOBIN 15.3 GM/DL (13.0-17.0); LYMPHOCYTE # 2.3 TH/MM3 (1.0-4.8); MEAN CELL VOLUME 88.1 FL (80.0-100.0); MEAN CORPUSCULAR HEMOGLOBIN 29.8 PG (27.0-34.0); MEAN CORPUSCULAR HGB CONC 33.9 % (32.0-36.0); MEAN PLATELET VOLUME 9.2 FL (7.0-11.0); MONO % 7.1 % (0.0-8.0); MONOCYTE # 0.5 TH/MM3 (0-0.9); NEUT % 55.9 % (16.0-70.0); PLATELET COUNT 188 TH/MM3 (150-450); RED BLOOD COUNT 5.11 MIL/MM3 (4.50-5.90); RED CELL DISTRIBUTION WIDTH 13.2 % (11.6-17.2); WHITE BLOOD COUNT 7.5 TH/MM3 (4.0-11.0)
[2017-06-06 14:52] LABS: INTERNATIONAL NORMALIZED RATIO 1.1 RATIO; PROTHROMBIN TIME - PATIENT 11.3 SEC (9.8-11.6)
[2017-06-06 14:59] LABS: BICARBONATE 25.3 MEQ/L (21.0-32.0); BLOOD UREA NITROGEN 12 MG/DL (7-18); CALCIUM 8.7 MG/DL (8.5-10.1); CHLORIDE 107 MEQ/L (98-107); CREATININE 0.79 MG/DL (0.60-1.30); GLOMERULAR FILTRATION RATE 106 ML/MIN (>89); GLUCOSE,RANDOM 84 MG/DL (74-106); MAGNESIUM 2.1 MG/DL (1.5-2.5); SODIUM (NA) 139 MEQ/L (136-145)
[2017-06-06 15:03] LABS: TROPONIN I LESS THAN 0.02 NG/ML (0.02-0.05)
--- NOTE | 2017-06-06 15:29 | PD ---
HPI Chief Complaint: Chest Pain Time Seen by Provider: 15:09 Travel History International Travel<30 days: No Contact w/Intl Traveler<30days: No Traveled to known affect area: No History of Present Illness HPI Patient comes to the emergency department complaining of possible anxiety attack. Patient states he woke up in the middle of night with palpitations and shortness of breath which is similar to previous anxiety attacks. Patient reports a little bit of chest discomfort with this. Patient states he was unable go back to sleep after this happened. Patient denies any symptoms currently. Patient reports associated feeling dizzy with this. Patient reports he last saw a database security expert about a year ago and had a stress test at that time was told symptoms were not coming from the heart. Patient reports he has Ativan but does not like to take it secondary to the way it makes him feel. Patient reports he only recently moved to the area and does not have a primary care doctor here locally. Denies any family history of heart disease. Patient does smoke. Severity mild. Denies any nausea, vomiting, abdominal pain , back pain, neck pain, headache, weakness anywhere, numbness or tingling anywhere, or change in vision. PFSH Past Medical History Anxiety: Yes Diminished Hearing: No Gastrointestinal Disorders: Yes (GASTRITIS) GERD: Yes Social History Alcohol Use: No Tobacco Use: Yes (1/2PPD) Substance Use: No Allergies-Medications (Allergen,Severity, Reaction): Coded Allergies: Penicillins (Verified Allergy, Severe, Nausea/Vomiting, 05/30/17) metoclopramide (Unverified Allergy, Severe, 05/30/17) "TRIGGERS MY ANXIETY" aspirin (Unverified Allergy, Unknown, 05/30/17) penicillin G (Unverified Allergy, Unknown, 05/30/17) Reported Meds & Prescriptions Reported Meds & Active Scripts Active Reported Lorazepam 0.5 Mg Tab 0.5 Mg PO Q8H PRN Review of Systems Except as stated in HPI: all other systems reviewed are Neg Physical Exam Narrative GENERAL: Well-developed, well nourished, in no acute distress, and non-ill appearing. SKIN: Focused skin assessment warm and dry. HEAD: Atraumatic. Normocephalic. EYES: Pupils equal and round. EOMI. No scleral icterus. No injection or drainage. ENT: No nasal bleeding or discharge. Mucous membranes pink and moist. NECK: Trachea midline. No JVD. Supple. No nuclear rigidity. CARDIOVASCULAR: Regular rate and rhythm. No murmur appreciated. Radial pulses 2+, intact, and equal bilaterally. RESPIRATORY: No accessory muscle use. No respiratory distress. Clear to auscultation. Breath sounds equal bilaterally. GASTROINTESTINAL: Abdomen soft, non-tender, nondistended, and no guarding. Hepatic and splenic margins not palpable. No pulsatile mass. MUSCULOSKELETAL: No obvious deformities. No clubbing. No cyanosis. No edema. Full range of motion. NEUROLOGICAL: Awake and alert. No obvious cranial nerve deficits. Motor grossly within normal limits. Normal speech. PSYCHIATRIC: Appropriate mood and affect; insight and judgment normal. Data Data Last Documented VS Vital Signs Date Time Temp Pulse Resp B/P (MAP) Pulse Ox O2 Delivery O2 Flow Rate FiO2 06/06/17 13:02 98.2 74 18 122/80 (94) 99 Orders Orders Electrocardiogram (06/06/17 13:04) Basic Metabolic Panel (Bmp) (06/06/17 13:04) Ckmb (Isoenzyme) Profile (06/06/17 13:04) Complete Blood Count With Diff (06/06/17 13:04) Magnesium (Mg) (06/06/17 13:04) Prothrombin Time / Inr (Pt) (06/06/17 13:04) Act Partial Throm Time (Ptt) (06/06/17 13:04) Troponin I (06/06/17 13:04) Chest, Pa & Lat (06/06/17 13:04) Labs Laboratory Tests Test 06/06/17 14:27 White Blood Count 7.5 TH/MM3 Red Blood Count 5.11 MIL/MM3 Hemoglobin 15.3 GM/DL Hematocrit 45.0 % Mean Corpuscular Volume 88.1 FL Mean Corpuscular Hemoglobin 29.8 PG Mean Corpuscular Hemoglobin Concent 33.9 % Red Cell Distribution Width 13.2 % Platelet Count 188 TH/MM3 Mean Platelet Volume 9.2 FL Neutrophils (%) (Auto) 55.9 % Lymphocytes (%) (Auto) 31.0 % Monocytes (%) (Auto) 7.1 % Eosinophils (%) (Auto) 4.8 % Basophils (%) (Auto) 1.2 % Neutrophils # (Auto) 4.2 TH/MM3 Lymphocytes # (Auto) 2.3 TH/MM3 Monocytes # (Auto) 0.5 TH/MM3 Eosinophils # (Auto) 0.4 TH/MM3 Basophils # (Auto) 0.1 TH/MM3 CBC Comment DIFF FINAL Differential Comment Prothrombin Time 11.3 SEC Prothromb Time International Ratio 1.1 RATIO Activated Partial Thromboplast Time 28.9 SEC Blood Urea Nitrogen 12 MG/DL Creatinine 0.79 MG/DL Random Glucose 84 MG/DL Calcium Level 8.7 MG/DL Magnesium Level 2.1 MG/DL Sodium Level 139 MEQ/L Potassium Level 4.2 MEQ/L Chloride Level 107 MEQ/L Carbon Dioxide Level 25.3 MEQ/L Anion Gap 7 MEQ/L Estimat Glomerular Filtration Rate 106 ML/MIN Total Creatine Kinase 87 U/L Troponin I LESS THAN 0.02 NG/ML MDM Medical Decision Making Medical Screen Exam Complete: Yes Emergency Medical Condition: Yes Medical Record Reviewed: Yes Interpretation(s) EKG reviewed by Dr. Marquez shows sinus rhythm ventricular rate of 61. No STEMI. Last Impressions Chest X-Ray 06/06/17 1304 Signed Impressions: Service Date/Time: Tuesday, June 06, 2017 13:23 - CONCLUSION: No acute cardiopulmonary disease. Jonah Briones MD Differential Diagnosis Atypical chest pain, pneumonia, arrhythmia, acute coronary syndrome, metabolic disturbance Narrative Course Patient seen and examined. Labs, x-ray, and EKG reviewed. Discussed patient with Dr. Marquez who recommended having patient placed in chest pain center for further evaluation. Was discussed with the patient recommendation to be admitted to the chest pain center for further evaluation, however patient does not believe is coming from his however and wants to leave AGAINST MEDICAL ADVICE. I discussed the risks of leaving against medical advice without further evaluation treatment with the patient. These risks include cardiac dysfunction, cardiac dysrhythmia, possible heart attack, possible stroke or . The patient indicated understanding of these risks and appeared to have the capacity to make this decision. Patient ambulated out of the emergency department without difficulty AGAINST MEDICAL ADVICE. Diagnosis Primary Impression: Left against medical advice Disposition: 07 AGAINST MEDICAL ADVICE Condition: Stable Acosta Ortiz Jun 06, 2017 15:29
--- NOTE | 2017-06-06 17:39 | EKG ---
Date Performed: 06/06/2017 Time Performed: 14:16:14 PTAGE: 46 years EKG: Sinus rhythm NORMAL ECG No significant change from prior electrocardiogram. DOCTOR: Marcio Engel Interpretating Date/Time 06/06/2017 17:38:03
== END 2017-06-07 05:03 | disposition left against medical advice (07) ==
LOC: NEPC 12:27
DX: R07.9 Chest pain, unspecified (principal); F17.210 Nicotine dependence, cigarettes, uncomplicated; F41.9 Anxiety disorder, unspecified; Z79.899 Other long term (current) drug therapy
CPT/HCPCS: 71046; 80048; 82550; 83735; 84484; 85025; 85610; 85730; 93005; 99284

== ENCOUNTER 2017-07-14 09:19 | Emergency (ER) | payer MEDICAID ==
[~2017-07-14] VITALS: Ht 175.3 cm; Wt 80.0 kg
[2017-07-14 09:25] VITALS: BP 111/77; PULSE 79; RESP 17; TEMP 97.8; O2SAT 98
--- NOTE | 2017-07-14 09:56 | PD ---
HPI Chief Complaint: Cold / Flu Symptoms Time Seen by Provider: 09:35 Travel History International Travel<30 days: No Contact w/Intl Traveler<30days: No Traveled to known affect area: No History of Present Illness HPI This is a 46-year-old male with history of anxiety disorder, tobacco use, who presents today with complaints of cough and congestion 5 days. Patient states that it started out as clear now it is become green and brown. He also reports some maxillary sinus tenderness. There is no reported fevers, chills. There is no reported headache or stiff neck. He reports the cough is so severe that it keeps him up at night. There are no other complaints at time of examination. PFSH Past Medical History Anxiety: Yes Diminished Hearing: No Gastrointestinal Disorders: Yes (GASTRITIS) GERD: Yes Social History Alcohol Use: No Tobacco Use: Yes (1/2PPD) Substance Use: No Allergies-Medications (Allergen,Severity, Reaction): Coded Allergies: Penicillins (Verified Allergy, Severe, Nausea/Vomiting, 07/14/17) metoclopramide (Unverified Allergy, Severe, 07/14/17) "TRIGGERS MY ANXIETY" aspirin (Unverified Allergy, Unknown, 07/14/17) penicillin G (Unverified Allergy, Unknown, 07/14/17) Reported Meds & Prescriptions Reported Meds & Active Scripts Active Guaifenesin AC Liq (Guaifenesin-Codeine Liq) 100-10 Mg/5 Ml Syrp 5 Ml PO Q4H PRN Doxycycline Hyclate 100 Mg Cap 100 Mg PO BID 10 Days Reported Lorazepam 0.5 Mg Tab 0.5 Mg PO Q8H PRN Review of Systems Except as stated in HPI: all other systems reviewed are Neg General / Constitutional: No: Fever, Chills HENT: Positive: Congestion, No: Headaches, Neck Pain Cardiovascular: No: Chest Pain or Discomfort, Palpitations Respiratory: Positive: Cough, Shortness of Breath, No: Wheezing, Hemoptysis Gastrointestinal: No: Nausea, Vomiting, Abdominal Pain Musculoskeletal: No: Weakness, Pain Neurologic: No: Weakness, Headache, Change in Mentation Physical Exam Narrative GENERAL: Well-nourished, well-developed patient, in no acute respiratory distress. SKIN: Focused skin assessment warm/dry. HEAD: Normocephalic/atraumatic. EYES: No scleral icterus. No injection or drainage. NECK: Supple, trachea midline. No JVD or lymphadenopathy. CARDIOVASCULAR: Regular rate and rhythm without murmurs, gallops, or rubs. RESPIRATORY: Breath sounds equal bilaterally. No accessory muscle use. Coarse rhonchi in the upper airways. GASTROINTESTINAL: Abdomen soft, non-tender, nondistended. MUSCULOSKELETAL: No cyanosis, or edema. BACK: Nontender without obvious deformity. No CVA tenderness. NEUROLOGICAL: Awake and alert. Cranial nerves II through XII intact. Motor and sensory grossly within normal limits. Five out of 5 muscle strength in all muscle groups. Normal speech. Data Data Last Documented VS Vital Signs Date Time Temp Pulse Resp B/P (MAP) Pulse Ox O2 Delivery O2 Flow Rate FiO2 07/14/17 09:25 97.8 79 17 111/77 (88) 98 Orders Orders Chest, Single Ap (07/14/17 09:35) Ed Discharge Order (07/14/17 11:58) MDM Medical Decision Making Medical Screen Exam Complete: Yes Emergency Medical Condition: Yes Differential Diagnosis Pneumonia versus bronchitis versus sinusitis Narrative Course 46-year-old male presents with 5 day history of cough. Patient reports that the cough has been keeping him up at night. There is no reported fevers, chills there is brown coloration. Chest x-ray shows no evidence of acute infiltrate. Patient will be treated with doxycycline and guaifenesin with codeine. He is amenable to this plan. Diagnosis Primary Impression: Bronchitis Additional Impression: Tobacco use Additional Instructions: Stop smoking. Return as needed. Scripts Guaifenesin-Codeine Liq (Guaifenesin AC Liq) 100-10 Mg/5 Ml Syrp 5 ML PO Q4H Y for COUGH, #120 ML 0 Refills Prov: Gurpreet Marquez MD 07/14/17 Doxycycline Hyclate (Doxycycline Hyclate) 100 Mg Cap 100 MG PO BID for Infection for 10 Days, #20 CAP 0 Refills Prov: Gurpreet Marquez MD 07/14/17 Disposition: 01 DISCHARGE HOME Condition: Stable Gurpreet Marquez MD Jul 14, 2017 09:56
[2017-07-14] MEDS ORDERED: DOXY100C PO (11:53)
[2017-07-14] MEDS ORDERED: GUAISYP4 PO ×2 (11:53→12:03)
--- NOTE | 2017-07-14 11:57 | PD ---
Physical Exam Date Seen by Provider: Jul 14, 2017 Time Seen by Provider: 11:54 Narrative 46-year-old male that presents to the ED for evaluation of cold-like symptoms. Please refer to my attendings note. Was asked to disposition patient pending x- ray. Data Data Last Documented VS Vital Signs Date Time Temp Pulse Resp B/P (MAP) Pulse Ox O2 Delivery O2 Flow Rate FiO2 07/14/17 09:25 97.8 79 17 111/77 (88) 98 Orders Orders Chest, Single Ap (07/14/17 09:35) MDM Medical Record Reviewed: Yes Supervised Visit with PETRA: No Interpretation(s) CXR showed no sign of acute disease per radiology report. Differential Diagnosis Bronchitis versus pneumonia versus URI Narrative Course 46-year-old male that presents to the ED for evaluation of cold-like symptoms. Please refer to my attendings note. I was asked to discharge patient pending x- ray. X-ray did not show any sign of acute disease. Per my attendings recommendations he wants the patient discharged on doxycycline and guaifanisen with codeine. Patient was told to take OTC meds as needed. Follow-up with PCP. See ED if worsening symptoms. Diagnosis Primary Impression: Bronchitis Patient Instructions: General Instructions Additional Instruction: Motrin and Tylenol for pain and fever. You can use [id number] antihistamine as well as well as Mucinex as needed for runny nose and congestion. Cough drops for cough as needed. Drink plenty of fluids. Follow-up with PCP. See ED for worsening symptoms. Med/Other Pt SpecificInfo: Prescription(s) given Scripts Guaifenesin-Codeine Liq (Guaifenesin AC Liq) 100-10 Mg/5 Ml Syrp 5 ML PO Q4H Y for COUGH, #1 BOTTLE 0 Refills Prov: Gurpreet Marquez MD 07/14/17 Doxycycline Hyclate (Doxycycline Hyclate) 100 Mg Cap 100 MG PO BID for Infection for 10 Days, #20 CAP 0 Refills Prov: Gurpreet Marquez MD 07/14/17 Disposition: 01 DISCHARGE HOME Condition: Stable Herber Izquierdo Jul 14, 2017 11:57
--- NOTE | 2017-07-14 12:12 | RADRPT ---
EXAM DATE: 07/14/2017 9:46 AM EDT AGE/SEX: 46 years / Male INDICATIONS: Cough, bronchitis CLINICAL DATA: This is the patient's initial encounter. Patient reports that signs and symptoms have been present for 4 - 6 days and indicates a pain score of 0/10. MEDICAL/SURGICAL HISTORY: . smokes None. COMPARISON: [facility] [place], CHEST SINGLE AP, 04/08/2017. . FINDINGS: A single AP view of the chest demonstrates the lungs to be symmetrically aerated without evidence of mass, infiltrate or effusion. The cardiomediastinal contours are unremarkable. Osseous structures a re intact. CONCLUSION: Negative examination. Electronically signed by: Giorgio Mendiola MD 07/14/2017 12:10 PM EDT
== END 2017-07-14 12:18 | disposition home or self-care (01) ==
LOC: NEPE 09:19 → NEDAMB 12:18
DX: J40 Bronchitis, not specified as acute or chronic (principal); F41.9 Anxiety disorder, unspecified; K21.9 Gastro-esophageal reflux disease without esophagitis; F17.200 Nicotine dependence, unspecified, uncomplicated; Z87.19 Personal history of other diseases of the digestive system; Z79.899 Other long term (current) drug therapy; Z88.0 Allergy status to penicillin; Z88.6 Allergy status to analgesic agent; Z88.8 Allergy status to other drugs, medicaments and biological substances
CPT/HCPCS: 71045; 99283